=== PATIENT | male | born 1995 | race Caucasian/White ===

== ENCOUNTER 2018-12-21 11:24 | Emergency (ER) | payer SELFPAY | END 2018-12-21 14:22 | disposition left against medical advice (07) | LOC: FTE 11:24 | DX: Z53.21 Procedure and treatment not carried out due to patient leaving prior to being seen by health care provider (principal) ==

== ENCOUNTER 2019-02-15 16:24 | Emergency (ER) | payer OTHER | END 2019-02-15 19:22 | disposition home or self-care (01) | LOC: FTE 16:24 | DX: J03.90 Acute tonsillitis, unspecified (principal) | CPT/HCPCS: 99283; Z7502 ==